=== PATIENT | male | born 1985 | race Caucasian/White ===

== ENCOUNTER → 2019-03-23 | Outpatient (CLI) | payer OTHER ==
--- NOTE | 2019-03-23 15:31 | XR ---
EXAMINATION TYPE: XR shoulder complete RT DATE OF EXAM: 03/23/2019 CLINICAL HISTORY: Pain and limited range of motion, history of prior clavicle surgery. TECHNIQUE: Three views of the right shoulder are obtained. COMPARISON: None. FINDINGS: There is no acute fracture/dislocation evident in the right shoulder. Moderate narrowing a t acromioclavicular joint. The glenohumeral joint is maintained. Some sclerosis inferior aspect mid t o distal clavicle presumed product of incompletely healed fracture as there is some lucent separation still present. Visualized ribs are intact and unremarkable. IMPRESSION: As above.
== END | disposition home or self-care (01) ==
LOC: RADXRMAIN 15:08
PROVIDERS: ATTEND Family Medicine
DX: M25.811 Other specified joint disorders, right shoulder (principal)

== ENCOUNTER 2019-07-04 13:58 | Emergency (ER) | payer OTHER ==
[2019-07-04 14:17] VITALS: TEMP 98.2
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
--- NOTE | 2019-07-04 14:52 | XR ---
EXAMINATION TYPE: XR foot complete RT DATE OF EXAM: 07/04/2019 COMPARISON: NONE HISTORY: Pain TECHNIQUE: 3 views FINDINGS: Metatarsals are intact. I see no fracture nor dislocation. Joint spaces are normal. IMPRESSION: Negative right foot exam.
[2019-07-04 15:22] VITALS: BP 148/90; PULSE 90; RESP 18
== END 2019-07-04 15:18 | disposition home or self-care (01) ==
LOC: EC 13:58
DX: S99.921A Unspecified injury of right foot, initial encounter (principal); M79.671 Pain in right foot; F90.9 Attention-deficit hyperactivity disorder, unspecified type; F17.200 Nicotine dependence, unspecified, uncomplicated; Z79.899 Other long term (current) drug therapy; Z88.7 Allergy status to serum and vaccine; W22.8XXA Striking against or struck by other objects, initial encounter
CPT/HCPCS: 99283

== ENCOUNTER → 2021-12-12 | Outpatient (CLI) | payer BC ==
--- NOTE | 2021-12-12 10:22 | US ---
EXAMINATION TYPE: US scrotum with doppler. Grayscale and color Doppler Duplex imaging performed of andreia mccann scrotum. DATE OF EXAM: 12/12/2021 COMPARISON: NONE CLINICAL HISTORY: N50.819 TESTICULAR PAIN. Mild left testicle swelling and tenderness x couple months EXAM MEASUREMENTS: TESTICLES: Right Testicle: 4.9 x 2.5 x 3.0 cm Left Testicle: 5.5 x 2.8 x 3.0 cm EPIDIDYMIS HEAD: Right Epididymis: 1.3 cm Left Epididymis: 1.6 cm, 0.4cm cyst Doppler performed to assess for testicular vascularity; good bilateral color flow and waveforms are s een. There is no evidence of testicular torsion. Presence of hydroceles: right - 2.6cm, left - 3.0cm Presence of varicoceles: no IMPRESSION: 1. Left epididymal cyst. 2. Small bilateral hydroceles
--- NOTE | 2021-12-12 10:27 | US ---
EXAMINATION TYPE: US kidneys/renal and bladder DATE OF EXAM: 12/12/2021 COMPARISON: NONE CLINICAL HISTORY: N39.0 FREQ URINATION. Difficulty urinating x 1 year EXAM MEASUREMENTS: Right Kidney: 11.1 x 4.4 x 5.6 cm Left Kidney: 10.2 x 6.4 x 5.4 cm Right Kidney: No hydronephrosis or masses seen Left Kidney: No hydronephrosis or masses seen Bladder: wnl Bilateral Jets seen: yes IMPRESSION: 1. No acute ultrasound abnormality renal ultrasound
== END | disposition home or self-care (01) ==
LOC: RADUSWWP 08:57
PROVIDERS: ATTEND Family Medicine
DX: N50.3 Cyst of epididymis (principal); N43.3 Hydrocele, unspecified
CPT/HCPCS: 76770; 76870; 93975

== ENCOUNTER → 2023-12-12 | Outpatient (CLI) | payer SELFPAY ==
--- NOTE | 2023-12-12 11:45 | XR ---
EXAMINATION TYPE: XR elbow limited RT DATE OF EXAM: 12/12/2023 11:38 AM INDICATION: Patient age:Male; 38 years old; Reason for study: M25.521 PAIN IN RIGHT ELBOW; [facility]. COMPARISON: None TECHNIQUE: The right elbow was examined in AP and lateral projections. FINDINGS: No evidence of any acute osseous pathology, joint dislocation, or soft tissue swelling is n oted. No evidence of joint effusion is present. IMPRESSION: No evidence of acute fracture. [facility], , 12/12/2023 11:42 AM
== END | disposition home or self-care (01) ==
LOC: RADXRMAIN 11:10
PROVIDERS: ATTEND Family Medicine
DX: M25.521 Pain in right elbow (principal)

== ENCOUNTER 2024-08-29 15:28 | Emergency (ER) | payer SELFPAY ==
--- NOTE | 2024-08-29 16:41 | XR ---
EXAMINATION TYPE: XR ankle complete RT DATE OF EXAM: 08/29/2024 4:31 PM COMPARISON: None CLINICAL INDICATION: Male, 39 years old with history of Eversion, pain with weightbearing, pain TECHNIQUE: XR ankle complete RT; frontal, lateral and oblique projections. FINDINGS: There is no evidence of acute osseous pathology. No evidence of subluxation or dislocation. Kager's fat pad is intact. Soft tissues are within normal limits. No radiopaque foreign bodies are identified . IMPRESSION: No evidence of acute fracture. [facility], , 08/29/2024 4:39 PM
--- NOTE | 2024-08-29 17:13 | ED ---
Lower Extremity Injury HPI - General Chief Complaint: Extremity Injury, Lower Stated Complaint: R ankle pain Time Seen by Provider: 08/29/24 15:42 Source: patient, RN notes reviewed Mode of arrival: wheelchair Limitations: no limitations - History of Present Illness Initial Comments: This is a 39-year-old male presenting for right ankle injury (07/27) occurring around 1420 today. Patient endorses inverting his foot during a golf game noting a "pop" on the dorsal aspect of his foot. Patient endorses ability to ambulate partially with increased pain with weightbearing. Patient denies striking head, loss consciousness, headache, neck pain MD Complaint: ankle injury Onset/Timin -: days(s) Injury: Ankle: Right Type of Injury: eversion Place: street/outdoors Severity scale (1-10): 6 Improves With: immobilization Worsens With: weight bearing, movement, palpation Context: jumping Associated Symptoms: snap/pop sensation - Related Data Home Medications Medication Instructions Recorded Confirmed Dextroamphetamine/Amphetamine 20 mg PO TID 03/17/15 03/17/15 [Adderall] Previous Rx's Medication Instructions Recorded Hydrocodone/Acetaminophen [[place] 1 each PO Q6HR PRN #12 tab 03/17/15 5-325] Ibuprofen [Motrin] 800 mg PO Q8HR PRN #30 tab 08/29/24 Allergies Allergy/AdvReac Type Severity Reaction Status Date / Time Tetanus Vaccines and Toxoid Allergy Rash/Hives Verified 07/04/19 14:17 [Tetanus Vaccines & Toxoid] Review of Systems ROS Statement: Those systems with pertinent positive or pertinent negative responses have been documented in the HPI. ROS Other: All systems not noted in ROS Statement are negative. Past Medical History Additional Past Medical History / Comment(s): fx clavicle History of Any Multi-Drug Resistant Organisms: None Reported Past Surgical History: Appendectomy, Orthopedic Surgery Additional Past Surgical History / Comment(s): clavicle repair Past Psychological History: ADD/ADHD Smoking Status: Never smoker Past Alcohol Use History: Occasional Past Drug Use History: None Reported General Exam Limitations: no limitations General appearance: alert, in no apparent distress Head exam: Present: atraumatic, normocephalic, normal inspection Eye exam: Present: normal appearance, PERRL, EOMI. Absent: scleral icterus, conjunctival injection, periorbital swelling ENT exam: Present: normal exam, mucous membranes moist Neck exam: Present: normal inspection. Absent: tenderness, meningismus, lymphadenopathy Respiratory exam: Present: normal lung sounds bilaterally. Absent: respiratory distress, wheezes, rales, rhonchi, stridor Cardiovascular Exam: Present: regular rate, normal rhythm, normal heart sounds. Absent: systolic murmur, diastolic murmur, rubs, gallop, clicks GI/Abdominal exam: Present: soft, normal bowel sounds. Absent: distended, tenderness, guarding, rebound, rigid Extremities exam: Present: full ROM, tenderness (Positive right Achilles tendon insertion point TTP on posterior aspect of calcaneus. Pain worsens and travels superiorly when patient is weightbearing.), normal capillary refill, other (Distal RLE neurovascular motor function intact. Posterior tibialis pulse +2). Absent: pedal edema, joint swelling, calf tenderness Back exam: Present: normal inspection Neurological exam: Present: alert, oriented X3, CN II-XII intact Psychiatric exam: Present: normal affect, normal mood Skin exam: Present: warm, dry, intact, normal color. Absent: rash Course Vital Signs 08/29/24 08/29/24 15:30 17:25 Temperature 98.1 F 99.1 F Pulse Rate 117 H 97 Respiratory 18 16 Rate Blood Pressure 136/88 131/84 O2 Sat by Pulse 100 99 Oximetry Procedures - Orthopedic Splinting/Casting Injury #1 Side: right Lower Extremity Injury Location: ankle Lower Extremity Immobilizer: posterior splint Other Orthopedic Equipment: crutches Medical Decision Making - Medical Decision Making Was pt. sent in by a medical professional or institution (, PA, RESOURCE MANAGEMENT PLANNER, urgent care, hospital, or group home...) When possible be specific @ -No Did you speak to anyone other than the patient for history (EMS, parent, family, police, friend...)? What history was obtained from this source @ -No Did you review nursing and triage notes (agree or disagree)? Why? @ -I reviewed and agree with nursing and triage notes Were old charts reviewed (outside hosp., previous admission, EMS record, old EKG, old radiological studies, urgent care reports/EKG's, group home records)? Report findings @ -No old charts were reviewed Differential Diagnosis (chest pain, altered mental status, abdominal pain women, abdominal pain men, vaginal bleeding, weakness, fever, dyspnea, syncope, headache, dizziness, GI bleed, back pain, seizure, CVA, palpatations, mental health, musculoskeletal)? @ -Differential Musculoskeletal Muscular strain, contusion, ligament sprain, fracture, arthritis, septic arthritis, bursitis, cellulitis, muscle spasm, nerve compression, DVT, arterial occlusion, herpes zoster, electrolyte abnormality, tumor.... This is not meant to be in all inclusive list EKG interpreted by me (3pts min.). @ -Not done X-rays interpreted by me (1pt min.). @ -Right ankle x-ray shows no acute fracture or dislocation with Kager fat pad intact. CT interpreted by me (1pt min.). @ -None done U/S interpreted by me (1pt. min.). @ -None done What testing was considered but not performed or refused? (CT, X-rays, U/S, labs)? Why? @ -None What meds were considered but not given or refused? Why? @ -Patient declined IM Toradol and p.o. Tylenol for pain in ER. Did you discuss the management of the patient with other professionals (professionals i.e. , PA, RESOURCE MANAGEMENT PLANNER, lab, RT, psych nurse, mental health social worker, fitness worker, teacher, canine enforcement officer, block and case maker)? Give summary @ -No Was smoking cessation discussed for >3mins.? @ -No Was critical care preformed (if so, how long)? @ -No Were there social determinants of health that impacted care today? How? (Homelessness, low income, unemployed, alcoholism, drug addiction, transportation, low edu. Level, literacy, decrease access to med. care, correction, rehab)? @ -No Was there de-escalation of care discussed even if they declined (Discuss DNR or withdrawal of care, Hospice)? DNR status @ -No What co-morbidities impacted this encounter? (DM, HTN, Smoking, COPD, CAD, Cancer, CVA, ARF, Chemo, Hep., AIDS, mental health diagnosis, sleep apnea, morbid obesity)? @ -None Was patient admitted / discharged? Hospital course, mention meds given and route, prescriptions, significant lab abnormalities, going to OR and other pertinent info. @ -Right ankle x-ray shows no acute fracture or dislocation with Kager fat pad intact. Mccrary test negative with Achilles tendon palpation indicating tendon remains intact. Patient notes increased pain with plantarflexion, declining all pain medication offered. Posterior splint applied and patient provided crutches with Motrin 800 sent to patient's pharmacy. Advise follow-up with orthopedics for ongoing evaluation of ankle pain and inability to bear weight, with pain traveling up back of leg with application of weight. Advised RICE and alternate Tylenol/Motrin every 4 hours for pain. Discussed patient with Dr. Crawley. Undiagnosed new problem with uncertain prognosis? @ -No Drug Therapy requiring intensive monitoring for toxicity (Heparin, Nitro, Insulin, Cardizem)? @ -No Were any procedures done? @ -Posterior splint applied to right ankle/foot. See procedure note Diagnosis/symptom? @ -Possible partial tear of right Achilles tendon Acute, or Chronic, or Acute on Chronic? @ -Acute Uncomplicated (without systemic symptoms) or Complicated (systemic symptoms)? @ -Uncomplicated Side effects of treatment? @ -No Exacerbation, Progression, or Severe Exacerbation? @ -No Poses a threat to life or bodily function? How? (Chest pain, [place], [place], pneumonia, PE, COPD, DKA, ARF, appy, cholecystitis, CVA, Diverticulitis, Homicidal, Suicidal, threat to staff... and all critical care pts) @ -No Disposition Clinical Impression: Achilles tendonitis Disposition: HOME SELF-CARE Condition: Fair Instructions (If sedation given, give patient instructions): Achilles Tendinitis (ED) Additional Instructions: Alternate Tylenol/Motrin every 4 hours for pain. Rest, compression and elevation recommended. May apply cold compress stick to affected area for 10 minutes up to 4 times daily. Follow-up with orthopedics for ongoing evaluation and management of ankle pain. Prescriptions: Ibuprofen [Motrin] 800 mg PO Q8HR PRN #30 tab PRN Reason: Pain Is patient prescribed a controlled substance at d/c from ED?: No Referrals: Cortes Reed MD [Primary Care Provider] - 1-2 days [facility] [Provider Group] - 1-2 days [facility] [Provider Group] - 1-2 days Time of Disposition: 17:13
[2024-08-29 17:32] VITALS: BP 131/84; PULSE 97; RESP 16; TEMP 99.1
== END 2024-08-29 17:32 | disposition home or self-care (01) ==
LOC: EC 15:28
DX: M76.61 Achilles tendinitis, right leg (principal); Z88.7 Allergy status to serum and vaccine
CPT/HCPCS: 29515; 99283